=== PATIENT | female | born 1945 | race Caucasian/White ===

== ENCOUNTER → 2018-02-24 09:47 | Outpatient (CLI) | payer MEDICARE, OTHER, SELFPAY | PROVIDERS: PCP Family Medicine; Visit Provider Family Medicine | DX: M81.0 Age-related osteoporosis without current pathological fracture (principal) | CPT/HCPCS: 77080 ==

== ENCOUNTER 2019-03-31 17:33 | Observation (INO) | payer MEDICARE, OTHER, SELFPAY ==
[2019-03-31 18:20] VITALS: BMI 26.9
[2019-03-31 18:30] VITALS: BP 138/64; PULSE 107; RESP 20; TEMP 37.1; O2SAT 98
[2019-03-31 18:55] LABS: Add Manual Diff / Slide Review NO; Basophils Absolute Auto 100 /uL (0-100); Basophils Percent Auto 0.9 % (0-2); Eosinophils Absolute Auto 100 /uL (0-450); Eosinophils Percent Auto 1.2 % (2-4); Lymphocytes Absolute Auto 1400 /uL (1100-4500); Lymphocytes Percent Auto 20.8 % (25-40); Mean Corpuscular HGB Conc 28.6 % (30-36); Mean Corpuscular Hemoglobin 17.8 PG (26-34); Mean Corpuscular Volume 62.2 fL (80-100); Monocytes Absolute Auto 800 /uL (0-900); Monocytes Percent Auto 11.7 % (3-14); Neutrophils Absolute Auto 4500 /uL (1500-7000); Neutrophils Percent Auto 65.4 % (50-75); Platelet Count 628 X10^3/uL (150-400); Red Blood Cell Count 2.45 X10^6/uL (4.0-5.2); Red Cell Distribution Width 17.7 % (11.6-14.8); White Blood Cell Count 6.9 X10^3/uL (4.5-11.0)
[2019-03-31 19:00] LABS: Hematocrit 15.2 % (36-46); Hemoglobin 4.3 g/dL (12.0-16.0)
[2019-03-31 19:03] LABS: Prothrombin Time 11.7 SECONDS (10.1-12.7)
[2019-03-31 19:04] LABS: Reticulocyte Count, Percent 2.8 % (1.06-2.63)
[2019-03-31 19:07] LABS: Alanine Aminotransferase 29 IU/L (9-52); Albumin 3.8 g/dL (3.5-5.0); Albumin Globulin Ratio 1.4 (1.0-2.8); Alkaline Phosphatase 77 U/L (38-126); Aspartate Aminotransferase 19 IU/L (14-36); BUN Creatinine Ratio 30.9 (6-22); Bilirubin Total 0.5 mg/dL (0.2-1.3); Blood Urea Nitrogen 34 mg/dL (7-17); Carbon Dioxide 22 mmol/L (22-32); Chloride 104 mmol/L (98-107); Estimated Glomerular Filt Rate 48.7 mL/min (>60); Globulin 2.7 g/dL (1.7-4.1); Glucose 130 mg/dL (80-110); HEMOLYSIS < 15 (0-50); Potassium 4.3 mmol/L (3.4-5.1); Sodium 136 mmol/L (137-145); Total Protein 6.5 g/dL (6.3-8.2)
[2019-03-31 19:18] LABS: Iron < 10 ug/dL (37-170); Percent Iron Saturation 2 % (15-50); Total Iron Binding Capacity 434 ug/dL (265-497); Transferrin 346 mg/dL (206-381)
[2019-03-31 19:20] LABS: Hypochromasia 2+; Microcytosis 2+; Polychromasia 2+
[2019-03-31 19:21] LABS: Anisocytosis 1+; Poikilocytosis 1+; Spherocytes 1+
[2019-03-31 19:23] LABS: Platelet Estimate Increased on smear
[2019-03-31 19:43] LABS: Ferritin 4.5 ng/mL (11.1-264)
[2019-03-31 19:56] VITALS: BP 125/75; PULSE 107; RESP 16; TEMP 36.7
[2019-03-31] MEDS: ACETAMINOPHEN 325 MG TABLET 650 MG PO (20:09)
[2019-03-31] MEDS: diphenhydrAMINE 25 MG TABLET 50 MG PO (20:09)
--- NOTE | 2019-03-31 20:11 | PC.NURSE ---
Patient admitted to room 209. Alert and oriented with pleasant affect. Denies pain or symptoms of anemia other than some weakness. Oriented to room and call light. Notified Dr. Walden that patient has arrived. Also clarified that patient is to receive 3 units PRBC's. Written orders put into [employer] and placed in chart as ordered. Report given to receiving nurse Wandy.
[2019-03-31 20:13] LABS: Folate 14.3 ng/mL (2.76-20.0); Vitamin B12 329 pg/mL (239-931)
--- NOTE | 2019-03-31 21:18 | PC.NURSE ---
Addendum entered by Wandy Min R.N. 03/31/19 23:50: Confirmed with Dr. Walden that Flexeril is ordered for 10mg, PO, as PRN HS. Having issues acknowledging medication as it was entered as PRN PRN and night pharmacy will not verify. I have tried several times to reject and re-enter order as a verbal with no success. I have relayed to NOC shift this need. Addendum entered by Wandy Min R.N. 03/31/19 23:06: tolerated 1 unit PRBC, infused at 125/hr. SCDs on and pt loves them, ask for longer ones. VSS. Original Note: SIRIA Shift pt AO, pleasant and receptive to care. Started first unit of PRBC with Michelle RN at 1957, VSS before and after 15minutes. pt reporting feeling brighter after an hour and 20 minutes of infusion. pt denies SOB, n/v, or pain but does state she has been feeling more fatigued these past couple weeks than normal. Up SBA, no lightheadedness reported. Tolerating liquids well, has yet to eat for us, as she is only craving broth.
--- NOTE | 2019-03-31 22:41 | P.HP_ITS ---
History of Present Illness Date Patient Seen: 03/31/19 Time Patient Seen: 22:31 Chief complaint: symptomatic anemia, thrombophillia Narrative: 74-year-old female presents as a direct admission from clinic secondary to a critical hemoglobin/hematocrit of 4.8/16.7 in the setting of exhaustion and unrelieved restless leg syndrome. MCV low at 63.5. Platelets elevated at 703. Vital signs in the clinic included a blood pressure of 108/64 and heart rate of 119. She has a history of iron-deficiency anemia and recently stopped her iron supplementation. She is not exactly sure when, probably in the last few months. Coincident with that time, went on a radish-only diet in order to lose weight, successful in losing 10-20 lb. Secondary to unrelenting fatigue, has been eating poorly because she has not had any energy to cook. Unable to walk even short distances secondary to shortness of breath. Feels that her legs are heavy. Her restless legs are ?driving her crazy.? Last CBC in the clinic on 07/11/2019 revealed a hemoglobin of 14.1 and hematocrit of 41.7. Previously hemoglobin 8.5, hematocrit 27.9 on 06/09/2017, MCV 60.1. Iron studies one-week later on 06/16/17 revealed an iron level of 14, iron saturation of 2.7%, and ferritin of 3, consistent with iron deficiency anemia, was treated with iron sulfate at that time. Denies bleeding from any source. No melena or hematochezia. No hematuria. Last colonoscopy approximately 7 years ago, reportedly normal. Pre-transfusion labs in the hospital including CBC, BMP, iron studies, reticulocyte count, vitamin B12, folate, and stool guaiac listed below in objective findings. Patient History Medical History (Updated 03/31/19 @ 23:13 by Enedelia Walden MD) Borderline hypercholesterolemia (Acute) Borderline hypertension (Acute) Bunion of unspecified foot (Acute) Iron deficiency anemia (Acute) Restless leg syndrome (Acute) Seasonal allergies (Acute) Snake bite poisoning (Acute) Surgical History (Updated 03/31/19 @ 23:14 by Enedelia Walden MD) H/O breast biopsy (Acute) History of appendectomy (Acute) History of foot surgery (Acute) History of tonsillectomy and adenoidectomy (Acute) Family History (Updated 03/31/19 @ 23:16 by Enedelia Walden MD) Father Diabetes mellitus Hypertension Stroke Tuberculosis Mother Hypertension Stroke Osteoporosis Sister Scleroderma Social History household members: spouse Smoking Status: Never smoker alcohol intake: current Family & Social History Family History (Updated 03/31/19 @ 23:16 by Enedelia Walden MD) Father Diabetes mellitus Hypertension Stroke Tuberculosis Mother Hypertension Stroke Osteoporosis Sister Scleroderma Family history unavailable: No Social History: household 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 Three children. Safety & Behavioral: Feels Safe in Current Yes Environment Been Physically Hurt or No Threatened By a Person Suicidal Ideation Description None Suicide Plan Description No Plan Tobacco & Substance use: Smoking Status Never smoker alcohol intake current alcohol intake frequency a few times a month Substance Use Type does not use Meds Home Medications Medication Instructions Recorded Confirmed Type atorvastatin 10 mg PO DAILY 03/31/19 03/31/19 History cholecalciferol (vitamin D3) 2,000 unit PO DAILY 03/31/19 03/31/19 History [Vitamin D3] cyclobenzaprine 1 tab PO PRN PRN 03/31/19 03/31/19 History hydrochlorothiazide 12.5 mg PO PRN PRN 03/31/19 03/31/19 History lisinopril 10 mg PO DAILY 03/31/19 03/31/19 History pramipexole 1 tab PO PRN PRN 03/31/19 03/31/19 History Allergies Allergy/AdvReac Type Severity Reaction Status Date / Time No Known Drug Allergies Allergy Verified 03/31/19 19:22 Review of Systems Review of Systems All systems reviewed & are unremarkable except as noted in HPI and below Exam Vital Signs (past 8 hours): - 03/31/19 18:30 03/31/19 19:56 Temperature 98.8 F 98.1 F Pulse Rate 107 H 107 H Respiratory Rate 20 16 Blood Pressure 138/64 125/75 Pulse Oximetry 98 Narrative Exam Narrative: General: Alert and oriented, appearing stated age, no acute distress. HEENT: Head normocephalic/atraumatic. Pupils equal, round, and reactive to light and accommodation. Extraocular muscles intact. Tympanic membranes clear. Nasal mucosa moist, septum midline. Oral mucosa moist, no lesions. Neck soft and supple, no lymphadenopathy. Lungs: Clear to auscultation bilaterally, no wheezes rhonchi or rales. CV: Normal S1 and S2 with regular rate and rhythm, no audible murmurs rubs or gallops. Abdomen: Soft, nontender, nondistended, positive bowel sounds. No organome sathish. Extremities: No clubbing, cyanosis, or edema. Skin: No concerning lesions. Psych: Alert and oriented x3. Objective Labs Result Diagrams: 03/31/19 18:40 03/31/19 18:40 Labs: Laboratory Results - last 24 hr 03/31/19 03/31/19 03/31/19 18:40 18:40 18:40 WBC 6.9 RBC 2.45 L Hgb 4.3 L* Hct 15.2 L* MCV 62.2 L MCH 17.8 L MCHC 28.6 L RDW 17.7 H Plt Count 628 H Neut % (Auto) 65.4 Lymph % (Auto) 20.8 L [place] % (Auto) 11.7 Eos % (Auto) 1.2 L Baso % (Auto) 0.9 Neut # (Auto) 4500 Lymph # (Auto) 1400 [place] # (Auto) 800 Eos # (Auto) 100 Baso # (Auto) 100 Platelet Estimate Increased on smear RBC Morphology See below Polychromasia 2+ H Hypochromasia 2+ H Poikilocytosis 1+ H Anisocytosis 1+ H Microcytosis 2+ H Spherocytes 1+ H Percent Retic 2.8 H PT 11.7 INR 1.0 Sodium Potassium Chloride Carbon Dioxide BUN Creatinine Estimated GFR BUN/Creatinine Ratio Glucose Calcium Iron TIBC % Saturation Transferrin Ferritin Total Bilirubin AST ALT Alkaline Phosphatase Total Protein Albumin Globulin Albumin/Globulin Ratio Vitamin B12 Folate Blood Type Antibody Screen Crossmatch 03/31/19 03/31/19 03/31/19 18:40 18:40 18:40 WBC RBC Hgb Hct MCV MCH MCHC RDW Plt Count Neut % (Auto) Lymph % (Auto) [place] % (Auto) Eos % (Auto) Baso % (Auto) Neut # (Auto) Lymph # (Auto) [place] # (Auto) Eos # (Auto) Baso # (Auto) Platelet Estimate RBC Morphology Polychromasia Hypochromasia Poikilocytosis Anisocytosis Microcytosis Spherocytes Percent Retic PT INR Sodium 136 L Potassium 4.3 Chloride 104 Carbon Dioxide 22 BUN 34 H Creatinine 1.10 H Estimated GFR 48.7 L BUN/Creatinine Ratio 30.9 H Glucose 130 H Calcium 9.0 Iron < 10 L TIBC 434 % Saturation 2 L Transferrin 346 Ferritin 4.5 L Total Bilirubin 0.5 AST 19 ALT 29 Alkaline Phosphatase 77 Total Protein 6.5 Albumin 3.8 Globulin 2.7 Albumin/Globulin Ratio 1.4 Vitamin B12 329 Folate 14.3 Blood Type O Negative Antibody Screen Negative Crossmatch See Detail Assessment & Plan Assessment & Plan narrative: 1. Iron deficiency anemia, symptomatic. Will admit for blood transfusion, at least 3 units to start, CBC status post transfusion. Discussed need for restarting oral virus versus IV iron. Will d iscuss again tomorrow status post blood transfusion. Celiac panel and EGD/colonoscopy with H pylori testing to complete workup. 2. Restless leg syndrome, likely exacerbated by iron deficiency anemia. Will continue home pramipexole at increased dose of 0.5 mg p.o. q.h.s.. May continue cyclobenzaprine 10 mg p.o. q.h.s. as needed. 3. Hypertension, essential. Continue lisinopril 10 mg p.o. q.h.s.. Holding hydrochlorothiazide during admission. 4. Elevated BUN and creatinine in setting of low GFR, acute versus chronic kidney injury uncertain, will trend BMP in the am. 5. Thrombophillia, likely acute phase reactant and related to anemia, will trend CBC. 6. Hyperlipidemia, controlled with atorvastatin, holding during inpatient stay. 7. VTE prophylaxis, SCDs. 8. Code: Full Quality VTE Deep Vein Thrombosis/Pulmonary Embolism Present on Admission: No
[2019-03-31 23:00] VITALS: BP 132/85; PULSE 107; RESP 16; TEMP 36.9
[2019-03-31 23:13] VITALS: BP 132/85; PULSE 107; RESP 18; TEMP 36.9
[2019-03-31 23:28] VITALS: BP 138/79; PULSE 106; RESP 18; TEMP 37.3
--- NOTE | 2019-03-31 23:49 | PM.HP.1 ---
History of Present Illness Chief complaint: symptomatic anemia, thrombophillia Narrative: 74-year-old female presents as a direct admission from clinic secondary to a critical hemoglobin/hematocrit of 4.8/16.7 in the setting of exhaustion and unrelieved restless leg syndrome. MCV low at 63.5. Platelets elevated at 703. Vital signs in the clinic included a blood pressure of 108/64 and heart rate of 119. She has a history of iron-deficiency anemia and recently stopped her iron supplementation. She is not exactly sure when, probably in the last few months. Coincident with that time, went on a radish-only diet in order to lose weight, successful in losing 10-20 lb. Secondary to unrelenting fatigue, has been eating poorly because she has not had any energy to cook. Unable to walk even short distances secondary to shortness of breath. Feels that her legs are heavy. Her restless legs are ?driving her crazy.? Last CBC in the clinic on 07/11/2019 revealed a hemoglobin of 14.1 and hematocrit of 41.7. Previously hemoglobin 8.5, hematocrit 27.9 on 06/09/2017, MCV 60.1. Iron studies one-week later on 06/16/17 revealed an iron level of 14, iron saturation of 2.7%, and ferritin of 3, consistent with iron deficiency anemia, was treated with iron sulfate at that time. Denies bleeding from any source. No melena or hematochezia. No hematuria. Last colonoscopy approximately 7 years ago, reportedly normal. Pre-transfusion labs in the hospital including CBC, BMP, iron studies, reticulocyte count, vitamin B12, folate, and stool guaiac listed below in objective findings. Patient History Medical History (Updated 03/31/19 @ 23:13 by Enedelia Walden MD) Borderline hypercholesterolemia (Acute) Borderline hypertension (Acute) Bunion of unspecified foot (Acute) Iron deficiency anemia (Acute) Restless leg syndrome (Acute) Seasonal allergies (Acute) Snake bite poisoning (Acute) Surgical History (Updated 03/31/19 @ 23:14 by Enedelia Walden MD) H/O breast biopsy (Acute) History of appendectomy (Acute) History of foot surgery (Acute) History of tonsillectomy and adenoidectomy (Acute) Family History (Updated 03/31/19 @ 23:16 by Enedelia Walden MD) Father Diabetes mellitus Hypertension Stroke Tuberculosis Mother Hypertension Stroke Osteoporosis Sister Scleroderma Social History household members: spouse Smoking Status: Never smoker alcohol intake: current Family & Social History Family History (Updated 03/31/19 @ 23:16 by Enedelia Walden MD) Father Diabetes mellitus Hypertension Stroke Tuberculosis Mother Hypertension Stroke Osteoporosis Sister Scleroderma Social History: Family history unavailable No household members spouse Safety & Behavioral: Feels Safe in Current Yes Environment Been Physically Hurt or No Threatened By a Person Suicidal Ideation Description None Suicide Plan Description No Plan Tobacco & Substance use: Smoking Status Never smoker alcohol intake current alcohol intake frequency a few times a month Substance Use Type does not use Meds Home Medications Medication Instructions Recorded Confirmed Type atorvastatin 10 mg PO DAILY 03/31/19 03/31/19 History cholecalciferol (vitamin D3) 2,000 unit PO DAILY 03/31/19 03/31/19 History [Vitamin D3] cyclobenzaprine 1 tab PO PRN PRN 03/31/19 03/31/19 History hydrochlorothiazide 12.5 mg PO PRN PRN 03/31/19 03/31/19 History lisinopril 10 mg PO DAILY 03/31/19 03/31/19 History pramipexole 1 tab PO PRN PRN 03/31/19 03/31/19 History Allergies Allergy/AdvReac Type Severity Reaction Status Date / Time No Known Drug Allergies Allergy Verified 03/31/19 19:22 Exam Vital Signs (past 8 hours): - 03/31/19 18:30 03/31/19 19:56 03/31/19 23:00 Temperature 98.8 F 98.1 F 98.4 F Pulse Rate 107 H 107 H 107 H Respiratory Rate 20 16 16 Blood Pressure 138/64 125/75 132/85 Pulse Oximetry 98 03/31/19 23:13 03/31/19 23:28 Temperature 98.4 F 99.1 F Pulse Rate 107 H 106 H Respiratory Rate 18 18 Blood Pressure 132/85 138/79 Pulse Oximetry Objective Labs Result Diagrams: 03/31/19 18:40 03/31/19 18:40 Labs: Laboratory Results - last 24 hr 03/31/19 03/31/19 03/31/19 18:40 18:40 18:40 WBC 6.9 RBC 2.45 L Hgb 4.3 L* Hct 15.2 L* MCV 62.2 L MCH 17.8 L MCHC 28.6 L RDW 17.7 H Plt Count 628 H Neut % (Auto) 65.4 Lymph % (Auto) 20.8 L [place] % (Auto) 11.7 Eos % (Auto) 1.2 L Baso % (Auto) 0.9 Neut # (Auto) 4500 Lymph # (Auto) 1400 [place] # (Auto) 800 Eos # (Auto) 100 Baso # (Auto) 100 Platelet Estimate Increased on smear RBC Morphology See below Polychromasia 2+ H Hypochromasia 2+ H Poikilocytosis 1+ H Anisocytosis 1+ H Microcytosis 2+ H Spherocytes 1+ H Percent Retic 2.8 H PT 11.7 INR 1.0 Sodium Potassium Chloride Carbon Dioxide BUN Creatinine Estimated GFR BUN/Creatinine Ratio Glucose Calcium Iron TIBC % Saturation Transferrin Ferritin Total Bilirubin AST ALT Alkaline Phosphatase Total Protein Albumin Globulin Albumin/Globulin Ratio Vitamin B12 Folate Blood Type Antibody Screen Crossmatch 03/31/19 03/31/19 03/31/19 18:40 18:40 18:40 WBC RBC Hgb Hct MCV MCH MCHC RDW Plt Count Neut % (Auto) Lymph % (Auto) [place] % (Auto) Eos % (Auto) Baso % (Auto) Neut # (Auto) Lymph # (Auto) [place] # (Auto) Eos # (Auto) Baso # (Auto) Platelet Estimate RBC Morphology Polychromasia Hypochromasia Poikilocytosis Anisocytosis Microcytosis Spherocytes Percent Retic PT INR Sodium 136 L Potassium 4.3 Chloride 104 Carbon Dioxide 22 BUN 34 H Creatinine 1.10 H Estimated GFR 48.7 L BUN/Creatinine Ratio 30.9 H Glucose 130 H Calcium 9.0 Iron < 10 L TIBC 434 % Saturation 2 L Transferrin 346 Ferritin 4.5 L Total Bilirubin 0.5 AST 19 ALT 29 Alkaline Phosphatase 77 Total Protein 6.5 Albumin 3.8 Globulin 2.7 Albumin/Globulin Ratio 1.4 Vitamin B12 329 Folate 14.3 Blood Type O Negative Antibody Screen Negative Crossmatch See Detail Quality VTE Deep Vein Thrombosis/Pulmonary Embolism Present on Admission: No
[2019-04-01] VITALS (11 sets, daily range): BP systolic 120–146; BP diastolic 63–98; PULSE 86–104; RESP 17–18; TEMP 36.7–37; O2SAT 96–99
[2019-04-01] MEDS: PRAMIPEXOLE 0.125 MG TABLET 0.375 MG PO (00:26)
[2019-04-01] MEDS: CYCLOBENZAPRINE 10 MG TABLET PO (00:29)
[2019-04-01] MEDS: FUROSEMIDE 40 MG/4 ML VIAL IV (02:59)
[2019-04-01] MEDS: DEXTROSE 5%-0.45% NS 1,000 ML 100 ML IV (06:51)
--- NOTE | 2019-04-01 07:02 | PC.NURSE ---
Lung sounds clear, VSS. Pt had blood administration through the night, 3rd Unit of PRBC's given, with no transfusion reaction. Pt still needs AM labs drawn at 0745. Pt switched over to D5 1/2NS at 100ml and hour at 0700. Pt is independent in room. Did not use SCD's this night, because of frequent trips to the bathroom since diuretic was given. Pt had no BM's this night so there was no stools to Guiac. all stools to be guiaced.
[2019-04-01 08:56] LABS: BUN Creatinine Ratio 25.6 (6-22); Blood Urea Nitrogen 23 mg/dL (7-17); Calcium 8.9 mg/dL (8.4-10.2); Carbon Dioxide 25 mmol/L (22-32); Chloride 105 mmol/L (98-107); Estimated Glomerular Filt Rate > 60.0 mL/min (>60); Glucose 124 mg/dL (80-110); HEMOLYSIS < 15 (0-50); Potassium 4.2 mmol/L (3.4-5.1); Sodium 138 mmol/L (137-145)
[2019-04-01 09:01] LABS: Add Manual Diff / Slide Review NO; Basophils Absolute Auto 100 /uL (0-100); Basophils Percent Auto 1.8 % (0-2); Eosinophils Absolute Auto 100 /uL (0-450); Eosinophils Percent Auto 1.5 % (2-4); Hematocrit 26.1 % (36-46); Hemoglobin 8.7 g/dL (12.0-16.0); Lymphocytes Absolute Auto 900 /uL (1100-4500); Lymphocytes Percent Auto 13.5 % (25-40); Mean Corpuscular HGB Conc 33.2 % (30-36); Mean Corpuscular Volume 69.3 fL (80-100); Monocytes Absolute Auto 700 /uL (0-900); Monocytes Percent Auto 10.2 % (3-14); Neutrophils Absolute Auto 5000 /uL (1500-7000); Platelet Count 502 X10^3/uL (150-400); Red Blood Cell Count 3.77 X10^6/uL (4.0-5.2); Red Cell Distribution Width 24.2 % (11.6-14.8); White Blood Cell Count 6.9 X10^3/uL (4.5-11.0)
[2019-04-01] MEDS: ACETAMINOPHEN 325 MG TABLET 650 MG PO (09:11)
[2019-04-01] MEDS: LISINOPRIL 10 MG TABLET PO (09:11)
[2019-04-01 10:25] LABS: Anisocytosis 2+; Basophilic Stippling 1+; Hypochromasia 2+; Microcytosis 1+; Poikilocytosis 1+; Polychromasia 1+
--- NOTE | 2019-04-01 11:25 | PM.DS.1 ---
History of Present Illness Chief complaint: symptomatic anemia, thrombophillia Narrative: 74-year-old female presents as a direct admission from clinic secondary to a critical hemoglobin/hematocrit of 4.8/16.7 in the setting of exhaustion and unrelieved restless leg syndrome. MCV low at 63.5. Platelets elevated at 703. Vital signs in the clinic included a blood pressure of 108/64 and heart rate of 119. She has a history of iron-deficiency anemia and recently stopped her iron supplementation. She is not exactly sure when, probably in the last few months. Coincident with that time, went on a radish-only diet in order to lose weight, successful in losing 10-20 lb. Secondary to unrelenting fatigue, has been eating poorly because she has not had any energy to cook. Unable to walk even short distances secondary to shortness of breath. Feels that her legs are heavy. Her restless legs are ?driving her crazy.? Last CBC in the clinic on 07/11/2019 revealed a hemoglobin of 14.1 and hematocrit of 41.7. Previously hemoglobin 8.5, hematocrit 27.9 on 06/09/2017, MCV 60.1. Iron studies one-week later on 06/16/17 revealed an iron level of 14, iron saturation of 2.7%, and ferritin of 3, consistent with iron deficiency anemia, was treated with iron sulfate at that time. Denies bleeding from any source. No melena or hematochezia. No hematuria. Last colonoscopy approximately 7 years ago, reportedly normal. Pre-transfusion labs in the hospital including CBC, BMP, iron studies, reticulocyte count, vitamin B12, folate, and stool guaiac listed below in objective findings. Discharge Providers Date of admission: 03/31/19 17:33 Discharge Date: 04/01/19 Primary care physician: Enedelia Walden MD Discharge provider: Enedelia Walden MD Summary Discharge Diagnosis: 1. Iron deficiency anemia, symptomatic 2. Acute kidney injury, improving 3. Thrombophilia, improving 4. Impaired fasting glucose 5. Restless legs syndrome 6. Hypertension, essential 7. Hyperlipidemia Hospital Course: Unremarkable, patient received 3 units of packed red blood cells with no side effects, hemoglobin doris from 4.3 to 8.7. On day of discharge, she is afebrile with stable vital signs throughout. Able to ambulate up to the bathroom, denies shortness of breath or chest pain. Admission heart rate 107, now 86. Patient did show kidney injury upon admission, which appears to be acute as her creatinine and BUN fell from 1.10 to 0.90 and 34 to 23, respectively. Admission platelets 628, discharge 502. She will be discharged on oral iron supplements with close follow-up in 1 week. Stool guaiac is pending secondary to lack of bowel movement during hospital stay. Outpatient EGD/colonoscopy in the next few weeks. Time spent on discharge and coordination of post hospital care: 30 minutes. Exam Vital Signs (past 8 hours): - 04/01/19 03:44 04/01/19 03:49 04/01/19 04:05 Temperature 98.3 F 98.3 F 98.4 F Pulse Rate 97 H 97 H 94 H Respiratory Rate 18 18 18 Blood Pressure 129/75 129/75 120/66 Pulse Oximetry 04/01/19 04:18 04/01/19 06:20 04/01/19 08:00 Temperature 98.4 F 98.1 F 98.2 F Pulse Rate 94 H 86 98 H Respiratory Rate 18 18 18 Blood Pressure 120/66 123/63 145/98 H Pulse Oximetry 99 97 04/01/19 09:05 Temperature Pulse Rate Respiratory Rate Blood Pressure Pulse Oximetry 96 Oxygen Delivery Method Room Air Oxygen Flow Rate 0 Narrative Exam Narrative: General: Alert and oriented, appearing stated age, no acute distress. HEENT: Head normocephalic/atraumatic. Pupils equal, round, and reactive to light and accommodation. Extraocular muscles intact. Tympanic membranes clear. Nasal mucosa moist, septum midline. Oral mucosa moist, no lesions. Neck soft and supple, no lymphadenopathy. Lungs: Clear to auscultation bilaterally, no wheezes rhonchi or rales. CV: Normal S1 and S2 with regular rate and rhythm, no audible murmurs rubs or gallops. Abdomen: Soft, nontender, nondistended, positive bowel sounds. No organomegaly. Extremities: No clubbing, cyanosis, or edema. Skin: No concerning lesions. Psych: Alert and oriented x3. Objective Labs Result Diagrams: 04/01/19 08:35 04/01/19 08:35 Labs: Laboratory Results - last 24 hr 03/31/19 03/31/19 03/31/19 18:40 18:40 18:40 WBC 6.9 RBC 2.45 L Hgb 4.3 L* Hct 15.2 L* MCV 62.2 L MCH 17.8 L MCHC 28.6 L RDW 17.7 H Plt Count 628 H Neut % (Auto) 65.4 Lymph % (Auto) 20.8 L [place] % (Auto) 11.7 Eos % (Auto) 1.2 L Baso % (Auto) 0.9 Neut # (Auto) 4500 Lymph # (Auto) 1400 [place] # (Auto) 800 Eos # (Auto) 100 Baso # (Auto) 100 Platelet Estimate Increased on smear RBC Morphology See below Polychromasia 2+ H Hypochromasia 2+ H Poikilocytosis 1+ H Basophilic Stippling Anisocytosis 1+ H Microcytosis 2+ H Spherocytes 1+ H Percent Retic 2.8 H PT 11.7 INR 1.0 Sodium Potassium Chloride Carbon Dioxide BUN Creatinine Estimated GFR BUN/Creatinine Ratio Glucose Calcium Iron TIBC % Saturation Transferrin Ferritin Total Bilirubin AST ALT Alkaline Phosphatase Total Protein Albumin Globulin Albumin/Globulin Ratio Vitamin B12 Folate Blood Type Antibody Screen Crossmatch 03/31/19 03/31/19 03/31/19 18:40 18:40 18:40 WBC RBC Hgb Hct MCV MCH MCHC RDW Plt Count Neut % (Auto) Lymph % (Auto) [place] % (Auto) Eos % (Auto) Baso % (Auto) Neut # (Auto) Lymph # (Auto) [place] # (Auto) Eos # (Auto) Baso # (Auto) Platelet Estimate RBC Morphology Polychromasia Hypochromasia Poikilocytosis Basophilic Stippling Anisocytosis Microcytosis Spherocytes Percent Retic PT INR Sodium 136 L Potassium 4.3 Chloride 104 Carbon Dioxide 22 BUN 34 H Creatinine 1.10 H Estimated GFR 48.7 L BUN/Creatinine Ratio 30.9 H Glucose 130 H Calcium 9.0 Iron < 10 L TIBC 434 % Saturation 2 L Transferrin 346 Ferritin 4.5 L Total Bilirubin 0.5 AST 19 ALT 29 Alkaline Phosphatase 77 Total Protein 6.5 Albumin 3.8 Globulin 2.7 Albumin/Globulin Ratio 1.4 Vitamin B12 329 Folate 14.3 Blood Type O Negative Antibody Screen Negative Crossmatch See Detail 04/01/19 04/01/19 08:35 08:35 WBC 6.9 RBC 3.77 L Hgb 8.7 L Hct 26.1 L MCV 69.3 L D MCH 23.0 L MCHC 33.2 D RDW 24.2 H Plt Count 502 H Neut % (Auto) 73.0 Lymph % (Auto) 13.5 L [place] % (Auto) 10.2 Eos % (Auto) 1.5 L Baso % (Auto) 1.8 Neut # (Auto) 5000 Lymph # (Auto) 900 L [place] # (Auto) 700 Eos # (Auto) 100 Baso # (Auto) 100 Platelet Estimate RBC Morphology See below Polychromasia 1+ H Hypochromasia 2+ H Poikilocytosis 1+ H Basophilic Stippling 1+ H Anisocytosis 2+ H Microcytosis 1+ H Spherocytes Percent Retic PT INR Sodium 138 Potassium 4.2 Chloride 105 Carbon Dioxide 25 BUN 23 H Creatinine 0.90 Estimated GFR > 60.0 BUN/Creatinine Ratio 25.6 H Glucose 124 H Calcium 8.9 Iron TIBC % Saturation Transferrin Ferritin Total Bilirubin AST ALT Alkaline Phosphatase Total Protein Albumin Globulin Albumin/Globulin Ratio Vitamin B12 Folate Blood Type Antibody Screen Crossmatch Discharge Plan Discharge Plan Patient Disposition: Home Discharge Med Rec/Prescriptions Prescriptions: New pramipexole 0.125 mg Tablet 0.375 mg PO BEDTIME Qty: 270 RF: 3 ferrous sulfate 325 mg (65 mg iron) tablet 325 mg PO BID Qty: 180 RF: 3 Continued atorvastatin 10 mg tablet 10 mg PO DAILY RF: 0 cyclobenzaprine 10 mg tablet 1 tab PO PRN PRN (Reason: Cramps) RF: 0 lisinopril 10 mg tablet 10 mg PO DAILY RF: 0 cholecalciferol (vitamin D3) [Vitamin D3] 1,000 unit Capsule 2,000 unit PO DAILY RF: 0 hydrochlorothiazide 12.5 mg tablet 12.5 mg PO PRN PRN (Reason: Edema) RF: 0 Changed pramipexole 0.125 mg tablet 1 tab PO QAM Qty: 0 RF: 0 Follow up/Referrals: Enedelia Walden MD [Non-Staff] - 04/05/19 (Call to make appt, GI pre-op on 04/05 at [facility], Enedelia Walden MD) Provider Discharge Instructions Diet: Regular Activity: as tolerated Skin/Wound/Dressing Care Report to your healthcare provider any signs of infection, such as:: chills, fever Visit Report/Discharge Packet Instructions: Good Food Sources of Iron, Colonoscopy, Anemia, DI for Blood Transfusion, How to Prevent Falls Visit Report Forms: Stroke Signs & Symptoms Discharge Data Primary Care Provider: Karson Prasad Attending Provider: Snehal Garcia Admit Date/Time: 03/31/19 17:33 Quality VTE Deep Vein Thrombosis/Pulmonary Embolism Present on Admission: No
--- NOTE | 2019-04-01 11:44 | CM.DANOTE ---
Patient is a 74 year old female who was admitted on 03/31/19 for Anemia, leukopenia, Thrombophilia. Pt has [facility] and [facility] for insurance and pt's PCP was Dr. Prasad who is retired and therefore pt with Dr. Enedelia Walden at their clinic. EMR was reviewed. Per Dr. Walden, pt significantly improved after 3 units of blood and is stable for d/c home today with plan for outpt scope in 3 weeks. SW met bedside with pt and explained role and pt confirms that she lives at home in [place] with her and is active and Independent at baseline with ADL's. Pt drives and is involved in the community and has local adult children. Pt denies any hx of HH or SNF and preference is to d/c home via spouse today and does not anticipate any SW needs. Pt states that she called her and he will be bedside around 1330 and available to provide transport and assist if needed. Pt states she feels so much better after getting transfusion. Plan: Patient to d/c home today via spouse POV and no SW needs at this time. NATASHA Chopra Discharge Planning/Care Management Advanced directive, confirm from FAMILY Start: 03/31/19 19:04 Freq: Q24H Status: Active Protocol: Document 03/31/19 19:04 CMG (Rec: 03/31/19 19:15 CMG [id number]) Advance Directive, confirm on record Time 19:15 Person contacted patient Copy received No CM Discharge Assessment Start: 04/01/19 11:41 Freq: Status: Active Protocol: Document 04/01/19 11:41 BF (Rec: 04/01/19 11:44 BF [id number]) Discharge Planning Assessment Assigned Child Psychologist NATASHA Anthony DPOA/Assigned Designee Name spouse Guru Advance Directives? Yes History Provided By Patient Medical Record Has Patient been admitted in last 30 No days? Prior Living Arrangements House Household Members spouse Type of transporation used prior to Drives own vehicle admit Independent with ADL's Yes Is patient alert and oriented? Yes Caregiver for Another No Comment Home when stable Barriers to Discharge No Discharge Plan Home Transportation Arrangement Spouse will be bedside around 1330 today to provide transport Referrals Initiated None needed Whiteboard Updated in Patient Room with Yes name and ext. # of Child Psychologist Review Status In Process Please Provide Date Initial DC 04/01/19 Assessment Was Performed Next Review Type Continued Stay Review
--- NOTE | 2019-04-01 13:48 | PC.NURSE ---
Addendum entered by Nena Nayak R.N. 04/01/19 14:01: pt left unit at 1400 via wheelchair with all belongings, , and [employer]CHNICIAN escort. Pt left unit in no distress. Original Note: Day Shift- Pt's only complaint this AM is of an anterior headache 3/10 relieved with PRN Tylenol at 0912. Denies dizziness, light-headedness, shortness of breath with rest or ambulation, states feeling generalized weakness, not at baseline. IVF infusing well throughout AM, stopped at 1120. Dr. Walden into see pt for discharge order. Discharge summary packet reviewed with pt around 1320. All questions answered, pt states is ready to go home. Pt's present to drive pt home.
== END 2019-04-01 14:00 | disposition home or self-care (01) ==
PROVIDERS: Family Medicine; Admitting Provider Student in an Organized Health Care Education/Training Program; PCP Family Medicine; Visit Provider Student in an Organized Health Care Education/Training Program
DX: N17.9 Acute kidney failure, unspecified (principal); D68.59 Other primary thrombophilia; G25.81 Restless legs syndrome; I10 Essential (primary) hypertension; E78.5 Hyperlipidemia, unspecified
CPT/HCPCS: 36415; 36430; 80048; 80053; 82607; 82728; 82746; 83540; 83550; 85025; 85045; 85610; 86850; 86900; 86901; 96365; 96374; 96375; G0378; P9016; G0379; J1940

== ENCOUNTER 2019-05-19 11:59 | Day surgery (SDC) | payer MEDICARE, OTHER, SELFPAY ==
--- NOTE | 2019-05-19 | PATH_ITS ---
[facility] Accession Number: [id number] . 01 Material submitted: . PART A: duodenum - BIOPSY THIRD PORTION DUODENUM PART B: gastrointestinal site - BIOPSY PYLORUS PART C: gastrointestinal site - BIOPSY FUNDUS STOMACH PART D: gastrointestinal site - BIOPSY BODY OF STOMACH PART E: colon - POLYP ASCENDING COLON . 02 Diagnosis: A. Duodenum, Third Portion, Biopsy: Duodenal mucosa with no diagnostic abnormality. Negative for active inflammation, features of sprue, dysplasia, and malignancy. . B. Stomach, Pylorus, Biopsy: Antral mucosa with mild chronic gastritis. Negative for Helicobacter by immunohistochemistry. Negative for intestinal metaplasia by alcian blue stain. Negative for dysplasia and malignancy. . C-D. Stomach, Fundus, Body, Biopsies: Body-type mucosa with mild chronic gastritis. Negative for Helicobacter by immunohistochemistry. Negative for intestinal metaplasia by alcian blue stains. Negative for dysplasia and malignancy. . E. Ascending Colon, Polyp, Biopsy: Sessile serrated adenoma. [facility]/05/23/2019 . 02 Electronically signed: . Brit Ramires MD, Pathologist NPI- [id number] . 01 Gross description: . (A) Received in formalin, labeled biopsy third portion duodenum, are two fragments of santamaria tissue (each approximately 0.2 x 0.2 x 0.1 cm). Entirely submitted in cassette A1. (B) Received in formalin, labeled biopsy pylorus, is a fragment of schrader-white tissue (0.3 x 0.2 by less than 0.1 cm).Entirely submitted in cassette B1. (C) Received in formalin, labeled biopsy fundus stomach, are two fragments of schrader-white tissue (0.4 x 0.1 x 0.1 cm and 0.2 x 0.1 x 0.1 cm). Entirely submitted in cassette C1. (D) Received in formalin, labeled biopsy body stomach, are two fragments of schrader-santamaria tissue (0.2 x 0.1 by less than 0.1 cm and 0.3 x 0.2 x 0.1 cm). Entirely submitted in cassette D1. (E) Received in formalin, labeled polyp ascending colon, are multiple fragments of blue-green stained tissue (1.3 x 0.8 x 0.1 cm in aggregate. Filtered and entirely submitted in cassette E1. ([id number]) /MRV . 02 Microscopic: . B-D. Immunohistochemical stains were performed on blocks B-D in order to evaluate for Helicobacter organisms and are negative in all three blocks. Alcian blue stains were performed on blocks B-D in order to evaluate for intestinal metaplasia and are negative in all three blocks. The control stains showed appropriate reactivity. . * This test was developed and its performance characteristics determined by [facility]. It has not been cleared or approved by the U.S. Food and Drug Administration. The FDA has determined that such clearance or approval is not necessary. This test is used for clinical purposes. It should not be regarded as investigational or for research. . 02 Pathologist provided ICD-10: D12.2 . 02 CPT . 990576, 735545, 373135, 382705, 451466, I53205, N28318 Performed at: 01 [facility] [address] [id number] MD Osorio Torres MD Phone: [phone] Performed at: 02 [facility] [address] [place] [id number] MD Brit Ramires MD Phone: [phone]
[2019-05-19 12:35] VITALS: BP 169/104; PULSE 103; RESP 14; TEMP 36.8; O2SAT 98; BMI 25.9
[2019-05-19] MEDS: SODIUM CHLORIDE 0.9% 1,000 ML 200 ML IV (12:49)
--- NOTE | 2019-05-19 12:51 | PM.OP.ENDO ---
Operative Date/Time/Diagnoses Date of procedure: 05/19/19 Time of procedure: 12:51 Pre-op diagnosis: 1. Screening for colon cancer 2. Anemia Procedure & Clinicians Study performed: 1. EGD Same procedure as scheduled: Yes Indications: 1. Anemia Surgeon: Enedelia Walden Procedure Notes SCOAP/Timeout: 13:01 Procedure in detail: ENDOSCOPIST: Enedelia Walden MD PROCEDURE: EGD with biopsy INDICATIONS: 1. Anemia MEDICATION: Incremental doses of Versed and fentanyl until an appropriate level of sedation was achieved. ASA Ratin DURATION OF PROCEDURE: 11 minutes. COMPLICATIONS: None. LIMITATIONS: None EXTENT OF PROCEDURE: Third portion of the Duodenum. PROCEDURE: The high-definition gastroduodenoscope was introduced into the posterior oropharynx under direct vision after Hurricaine spray, noted IV sedation, and proper informed consent. The esophagus was identified and intubated under direct visualization. The scope was quickly passed through the esophagus and into the fundus of the stomach. A clear fundal pool was aspirated. The scope was then advanced to the antrum and the pylorus was identified. The scope was passed through the pylorus into the second and third portions of the duodenum. No abnormalities were noted in the duodenum, duodenal bulb or pyloric channel. Random biopsies x2. The antrum had superficial hyperemesis, random biopsies taken x2. J maneuver was produced. No abnormalities were noted of the proximal body, fundus or cardia. A moderate-sized hiatal hernia was noted. Scope was broken out of the J maneuver and the remainder of the stomach was carefully inspected upon withdrawal and body had some superficial hyperemesis, random biopsies taken x2. The stomach was carefully deflated of all air on withdrawal. The distal esophagus was carefully inspected and no abnormalities were seen. The remainder of the esophagus was normal upon withdrawal. The larynx and vocal cords appeared to be unremarkable. IMPRESSION: 1. Superficial hyper emesis, antrum and body 2. Moderate sized hiatal hernia PLAN: 1. Follow up in clinic status post pathology results The possibility of missed lesion including a malignancy was discussed prior with the patient. Potential alarm symptoms have been discussed and should be reported by the patient immediately. Scope withdrawal time: 10 minutes Sedation minutes: 10 Findings: gastritis Specimen(s): other Complications: none Impression: Superficial hyperemesis, hiatal hernia Recommendations: Will call with biopsy results Plan for aftercare: Follow-up in 2 weeks Follow up: weeks (2) Disposition: PACU
--- NOTE | 2019-05-19 12:53 | PM.OP.ENDO ---
Operative Date/Time/Diagnoses Date of procedure: 05/19/19 Time of procedure: 12:54 Pre-op diagnosis: 1. Anemia 2. Screening for colon cancer Procedure & Clinicians Study performed: 1. Colonoscopy Same procedure as scheduled: Yes Indications: 1. Anemia 2. Screening for colon cancer Surgeon: Enedelia Walden Procedure Notes SCOAP/Timeout: 13:16 Procedure in detail: ENDOSCOPIST: Enedelia Walden MD PROCEDURE: Colonoscopy with biopsy INDICATIONS: 1. Anemia 2. Screening for colon cancer MEDICATION: Levsin 0.125 mg sublingual, incremental doses of Versed and fentanyl until appropriate level sedation achieved. ASA CLASS: 2 CECAL WITHDRAWAL TIME: 32 minutes COMPLICATIONS: None. EXTENT OF PROCEDURE: Cecum. QUALITY OF PREP: Good with portions of liquid stool. PROCEDURE: Prior to insertion of the colonoscope, a digital rectal examination was accomplished with circumferential palpation of the distal rectal mucosa without significant findings being noted. The high-definition colonoscope was passed into the rectum in the usual fashion and advanced over to the cecum without difficulty. The ileocecal valve, appendiceal stoma, and medial wall all could be inspected and no abnormalities were seen. ASCENDING COLON: As the colonoscope was withdrawn, care was taken to expose and inspect the haustral folds and an 8 mm sessile polyp was seen, lifted with methylene blue and removed with cold snare, hemoclip placed with excellent hemostasis. HEPATIC FLEXURE: Mild diverticulosis, otherwise, no polyps or other abnormalities. TRANSVERSE COLON: Mild diverticulosis, otherwise, no polyps or other abnormalities. DESCENDING COLON: Severe diverticulosis, otherwise, no polyps or other abnormalities. SIGMOID COLON: Severe diverticulosis, otherwise, no polyps or other abnormalities. RECTUM: Normal. J maneuver was produced. There was no significant perianal disease. The J maneuver was broken. The remainder of the rectum was inspected and there was no external hemorrhoid disease. The scope was withdrawn. IMPRESSION: 1. Ascending polyp x1, 8 mm, left with methylene blue and removed with cold snare 2. Diverticulosis, mild right-sided, severe left-sided PLAN: 1. Follow up in clinic status post pathology results. The possibility of a missed lesion including a malignancy has been discussed with the patient previously. Potential alarm symptoms have been discussed and should be reported immediately. Scope withdrawal time: 32 Sedation minutes: 39 Findings: polyp Specimen(s): other Complications: none Impression: 1. Ascending polyp x1, 8 mm 2. Diverticulosis, severe, left-sided Recommendations: Will call with biopsy results Follow up: weeks (2) Disposition: PACU
[2019-05-19] MEDS: fentaNYL 250 MCG/5 ML INJ IV (13:29)
[2019-05-19] MEDS: MIDAZOLAM 5 MG/5 ML VIAL IV (13:32)
[2019-05-19] MEDS: METHYLENE BLUE 50 MG/10 ML VIAL INJ (13:42)
[2019-05-19 13:59] VITALS: BP 143/93; PULSE 97; RESP 15; TEMP 36.6; O2SAT 97
[2019-05-19 14:03] VITALS: BP 129/82; PULSE 100; RESP 12; O2SAT 98
[2019-05-19] MEDS: LIDOCAINE 4% SOLN 50 ML 20 ML TOP (14:03)
[2019-05-19 14:08] VITALS: BP 150/84; PULSE 100; RESP 19; O2SAT 97
[2019-05-19 14:13] VITALS: BP 146/92; PULSE 98; RESP 15; O2SAT 97
[2019-05-19 14:16] VITALS: BP 148/94; PULSE 96; RESP 16; TEMP 37.1; O2SAT 96
--- NOTE | 2019-06-02 16:33 | P.HP_ITS ---
History of Present Illness History of Present Illness Date Patient Seen: 05/19/19 Time Patient Seen: 12:45 Chief complaint: [id number] Narrative: 74-year-old female comes in today for hospital follow-up of symptomatic iron-deficiency anemia need for EGD/colonoscopy. Transfused 3 units of blood on 03/23/2019, 1 night stay. Admission hemoglobin/hematocrit 4.3/16.7. After 3 units of PRBCs, hemoglobin/hematocrit was 8.7/26.1. Associated symptoms include restless leg syndrome and fatigue. She also had acute renal failure likely secondary to the severe anemia improved with transfusion. Admission creatinine 1.10, discharged 0.90. Admission BUN 34, discharge 21/12. Reports that both restless leg syndrome and fatigue have vastly improved since her blood transfusion. She was discharged on ferrous sulfate 325 mg p.o. b.i.d. and is tolerating that well orally, stools have subsequently turned black, as expected. Otherwise, denies melena or hematochezia. No abdominal pain. History of colonoscopy approximately 7-8 years ago, [place], [place], reportedly n ormal per patient. No change in bowel habits. There has been no family history of colon cancer colon polyps. Overall health issues have been stable, including no major cardiac events for the past 6 weeks. Patient History Medical History (Updated 06/02/19 @ 16:40 by Enedelia Walden MD) Borderline hypercholesterolemia (Acute) Borderline hypertension (Acute) Bunion of unspecified foot (Acute) Dyspnea on minimal exertion (Acute) Hearing loss (Acute) Iron deficiency anemia (Acute) Osteoarthritis (Acute) Osteoporosis (Acute) Restless leg syndrome (Acute) Seasonal allergies (Acute) Snake bite poisoning (Acute) Vitamin D deficiency (Acute) Surgical History (Updated 05/11/19 @ 13:58 by Malcolm Eiesnberg MD) H/O breast biopsy (Acute) History of appendectomy (Acute) History of foot surgery (Acute) History of tonsillectomy and adenoidectomy (Acute) Family History Father Diabetes mellitus Hypertension Stroke Tuberculosis Mother Hypertension Stroke Osteoporosis Sister Scleroderma Social History household members: spouse Smoking Status: Never smoker alcohol intake: current Family & Social History Social History: household members spouse Tobacco & Substance use: Smoking Status Never smoker alcohol intake current alcohol intake frequency a few times a month Substance Use Type does not use Meds Home Medications and Allergies Home Medications Medication Instructions Recorded Confirmed Type atorvastatin 10 mg PO DAILY 03/31/19 05/19/19 History cholecalciferol (vitamin D3) 2,000 unit PO DAILY 03/31/19 05/19/19 History [Vitamin D3] cyclobenzaprine 1 tab PO PRN PRN 03/31/19 05/19/19 History hydrochlorothiazide 12.5 mg PO PRN PRN 03/31/19 05/19/19 History lisinopril 10 mg PO DAILY 03/31/19 05/19/19 History pramipexole 0.375 mg PO BEDTIME #270 tab 04/01/19 05/19/19 Rx pramipexole 1 tab PO QAM #0 tab 04/01/19 05/19/19 Rx ferrous sulfate 325 mg PO DAILY 05/11/19 05/19/19 History Allergies Allergy/AdvReac Type Severity Reaction Status Date / Time No Known Drug Allergies Allergy Verified 05/19/19 12:38 Review of Systems Review of Systems ROS Unobtainable: All systems reviewed & are unremarkable except as noted in HPI and below Exam Vital Signs (past 8 hours): Oxygen Delivery Method Room Air Narrative Exam Narrative: GENERAL: Alert and oriented, appearing stated age and in no acute distress. HEENT: Head normocephalic/atraumatic. LUNGS: Clear to ausculation bilaterally, no wheezes, rhonchi or rales. CV: Normal S1 and S2 with regular rate and rhythm, no audible murmurs, rubs or gallops. ABDOMEN: Soft, non-tender, non-distended, no organomegaly. Positive bowel sounds. EXTREMITIES: No clubbing, cyanosis, or edema. NEURO: Cranial nerves II through XII grossly intact, no focal deficits. PSYCH: Alert and oriented x 3. SKIN: No concerning lesions. Assessment & Plan Assessment & Plan narrative: 1. Anemia 2. Screening for colon cancer EGD and colonoscopy. The nature and character of the procedures as well as anticipated results were discussed. The possibility of not completing the procedures was also discussed. Possible complications including aspiration pneumonia, bleeding, perforation, and reaction to medications either for sedation or preparation and missed lesions were discussed. Questions were answered in proceeding the ED colonoscopy was liked it. Informed consent signed. CBC will be repeated today Time Spent With Patient Time with patient: 25 - 35 minutes
== END 2019-05-19 14:37 | disposition home or self-care (01) ==
PROVIDERS: PCP Student in an Organized Health Care Education/Training Program; Visit Provider Student in an Organized Health Care Education/Training Program
PROC: 0DJ08ZZ Inspection of Upper Intestinal Tract, Via Natural or Artificial Opening Endoscopic (ICD-10-PCS; CPT 43235; principal; 2019-05-19 13:00)
PROC: 0DJD8ZZ Inspection of Lower Intestinal Tract, Via Natural or Artificial Opening Endoscopic (ICD-10-PCS; CPT 45378; 2019-05-19 13:00)
DX: Z12.11 Encounter for screening for malignant neoplasm of colon (principal); D12.2 Benign neoplasm of ascending colon; K57.30 Diverticulosis of large intestine without perforation or abscess without bleeding; K29.50 Unspecified chronic gastritis without bleeding; K44.9 Diaphragmatic hernia without obstruction or gangrene; D50.9 Iron deficiency anemia, unspecified; G25.81 Restless legs syndrome; E78.5 Hyperlipidemia, unspecified; I10 Essential (primary) hypertension; E55.9 Vitamin D deficiency, unspecified; M81.0 Age-related osteoporosis without current pathological fracture; R53.83 Other fatigue
CPT/HCPCS: 45385; 43239; 88305; 88341; 88342; J2250; J3010; Q9968

== ENCOUNTER → 2019-12-14 10:24 | Outpatient (CLI) | payer MEDICARE, OTHER, SELFPAY ==
[2019-12-14 11:08] LABS: Add Manual Diff / Slide Review NO; Basophils Absolute Auto 0 /uL (0-100); Basophils Percent Auto 0.7 % (0-2); Eosinophils Absolute Auto 100 /uL (0-450); Eosinophils Percent Auto 1.1 % (2-4); Hematocrit 41.6 % (36-46); Hemoglobin 13.6 g/dL (12.0-16.0); Lymphocytes Absolute Auto 1400 /uL (1100-4500); Lymphocytes Percent Auto 30.2 % (25-40); Mean Corpuscular HGB Conc 32.6 % (30-36); Mean Corpuscular Hemoglobin 27.7 PG (26-34); Mean Corpuscular Volume 84.9 fL (80-100); Monocytes Absolute Auto 500 /uL (0-900); Monocytes Percent Auto 11.4 % (3-14); Neutrophils Absolute Auto 2600 /uL (1500-7000); Neutrophils Percent Auto 56.6 % (50-75); Platelet Count 369 X10^3/uL (150-400); Red Cell Distribution Width 16.9 % (11.6-14.8); White Blood Cell Count 4.7 X10^3/uL (4.5-11.0)
[2019-12-14 11:33] LABS: HEMOLYSIS < 15 (0-50); Iron 86 ug/dL (37-170)
[2019-12-14 11:44] LABS: Percent Iron Saturation 27 % (15-50); Total Iron Binding Capacity 323 ug/dL (265-497); Transferrin 273 mg/dL (206-381)
[2019-12-14 12:13] LABS: Ferritin 56 ng/mL (11-264)
[2019-12-14 12:43] LABS: Folate 15.3 ng/mL (2.76-20.0); Vitamin B12 449 pg/mL (239-931)
== END ==
PROVIDERS: PCP Student in an Organized Health Care Education/Training Program; Referring Provider Internal Medicine Hematology & Oncology; Visit Provider Internal Medicine Hematology & Oncology
DX: D50.9 Iron deficiency anemia, unspecified (principal)
CPT/HCPCS: 36415; 82607; 82728; 82746; 83540; 83550; 85025

== ENCOUNTER → 2020-01-16 10:47 | Outpatient (CLI) | payer MEDICARE, OTHER, SELFPAY ==
[2020-01-16 11:06] LABS: Add Manual Diff / Slide Review NO; Basophils Absolute Auto 0 /uL (0-100); Basophils Percent Auto 0.8 % (0-2); Eosinophils Absolute Auto 0 /uL (0-450); Eosinophils Percent Auto 0.9 % (2-4); Hematocrit 41.5 % (36-46); Hemoglobin 13.7 g/dL (12.0-16.0); Lymphocytes Absolute Auto 1300 /uL (1100-4500); Lymphocytes Percent Auto 25.5 % (25-40); Mean Corpuscular HGB Conc 33.1 % (30-36); Mean Corpuscular Hemoglobin 27.2 PG (26-34); Mean Corpuscular Volume 82.2 fL (80-100); Monocytes Absolute Auto 500 /uL (0-900); Neutrophils Absolute Auto 3300 /uL (1500-7000); Neutrophils Percent Auto 62.8 % (50-75); Platelet Count 350 X10^3/uL (150-400); Red Blood Cell Count 5.05 X10^6/uL (4.0-5.2); Red Cell Distribution Width 16.2 % (11.6-14.8); White Blood Cell Count 5.2 X10^3/uL (4.5-11.0)
[2020-01-16 11:26] LABS: HEMOLYSIS < 15 (0-50); Iron 73 ug/dL (37-170)
[2020-01-16 11:36] LABS: Percent Iron Saturation 22 % (15-50); Total Iron Binding Capacity 325 ug/dL (265-497); Transferrin 278 mg/dL (206-381)
[2020-01-16 11:54] LABS: Ferritin 21 ng/mL (11-264)
== END ==
PROVIDERS: PCP Student in an Organized Health Care Education/Training Program; Referring Provider Internal Medicine Hematology & Oncology; Visit Provider Internal Medicine Hematology & Oncology
DX: D50.9 Iron deficiency anemia, unspecified (principal)
CPT/HCPCS: 36415; 82728; 83540; 83550; 85025

== ENCOUNTER → 2020-02-27 11:17 | Outpatient (CLI) | payer MEDICARE, OTHER, SELFPAY ==
[2020-02-27 12:08] LABS: Add Manual Diff / Slide Review NO; Basophils Absolute Auto 100 /uL (0-100); Basophils Percent Auto 0.9 % (0-2); Eosinophils Absolute Auto 100 /uL (0-450); Eosinophils Percent Auto 1.4 % (2-4); Hematocrit 38.3 % (36-46); Hemoglobin 12.6 g/dL (12.0-16.0); Lymphocytes Absolute Auto 1800 /uL (1100-4500); Lymphocytes Percent Auto 25.7 % (25-40); Mean Corpuscular HGB Conc 32.8 % (30-36); Mean Corpuscular Hemoglobin 26.4 PG (26-34); Mean Corpuscular Volume 80.5 fL (80-100); Monocytes Absolute Auto 600 /uL (0-900); Monocytes Percent Auto 9.1 % (3-14); Neutrophils Absolute Auto 4500 /uL (1500-7000); Neutrophils Percent Auto 62.9 % (50-75); Platelet Count 437 X10^3/uL (150-400); Red Blood Cell Count 4.76 X10^6/uL (4.0-5.2); Red Cell Distribution Width 15.7 % (11.6-14.8); White Blood Cell Count 7.2 X10^3/uL (4.5-11.0)
[2020-02-27 12:27] LABS: HEMOLYSIS < 15 (0-50); Iron 28 ug/dL (37-170)
[2020-02-27 12:38] LABS: Percent Iron Saturation 7 % (15-50); Total Iron Binding Capacity 378 ug/dL (265-497); Transferrin 304 mg/dL (206-381)
[2020-02-27 13:04] LABS: Ferritin 7 ng/mL (11-264)
[2020-02-27 13:35] LABS: Folate 7.8 ng/mL (2.76-20.0); Vitamin B12 325 pg/mL (239-931)
== END ==
PROVIDERS: PCP Student in an Organized Health Care Education/Training Program; Referring Provider Internal Medicine Hematology & Oncology; Visit Provider Internal Medicine Hematology & Oncology
DX: D50.9 Iron deficiency anemia, unspecified (principal)
CPT/HCPCS: 36415; 82607; 82728; 82746; 83540; 83550; 85025

== ENCOUNTER → 2021-03-24 14:06 | Outpatient (CLI) | payer MEDICARE, OTHER, SELFPAY | PROVIDERS: PCP Student in an Organized Health Care Education/Training Program; Referring Provider Student in an Organized Health Care Education/Training Program; Visit Provider Student in an Organized Health Care Education/Training Program | DX: M85.88 Other specified disorders of bone density and structure, other site (principal); Z78.0 Asymptomatic menopausal state; Z87.891 Personal history of nicotine dependence; Z82.62 Family history of osteoporosis | CPT/HCPCS: 77080 ==

== ENCOUNTER → 2023-04-30 09:59 | Outpatient (CLI) | payer MEDICARE, OTHER, SELFPAY ==
--- NOTE | 2023-04-30 10:16 | DI.DEXA.S_ITS ---
Bone Density Report Name: MARLON BOWMAN Age: 78 Sex: Female Ethnicity: White Date of : 1945 Indication: osteopenia; monitoring treatment; Referring Provider: DARLEEN ROMERO Study: Bone densitometry was performed. Exam Date: April 30, 2023 Accession number: [id number] Bone Density: Region BMD T-score Z-score Classification AP Spine(L1-L4) 0.809 -2.2 0.4 Osteopenia Femoral Neck (Left) 0.561 -2.6 -0.4 Osteoporosis Total Hip (Left) 0.777 -1.4 0.5 Osteopenia Femoral Neck (Right) 0.656 -1.7 0.4 Osteopenia Total Hip (Right) 0.786 -1.3 0.6 Osteopenia Total Hip Mean 0.781 -1.4 0.6 Osteopenia World Health Organization criteria for BMD impression classify patients as: Normal (T-score at or above -1.0), Osteopenia (T-score between -1.0 and -2.5), or Osteoporosis (T-score at or below -2.5). 10-year Fracture Risk: FRAX not reported because: Some T-score for Spine Total or Hip Total or Femoral Neck at or below -2.5 Treated for osteoporosis Previous Exams: -- Region Exam Age BMD T-score BMD Change BMD Change Date g/cm2 vs Baseline vs Previous -- AP Spine (L1-L4) 04/30/2023 78 0.809 -2.2 -0.024 (-2.9%)# -0.024 (-2.9%)# 03/24/2021 76 0.833 -1.9 Total Hip(Left) 04/30/2023 78 0.777 -1.4 0.020 (2.7%)# 0.020 (2.7%)# 03/24/2021 76 0.756 -1.5 Total Hip(Right) 04/30/2023 78 0.786 -1.3 0.070 (9.8%)# 0.070 (9.8%)# 03/24/2021 76 0.716 -1.9 -- *Denotes significance at 95% confidence level, LSC for AP Spine = 0.022 g/cm2, LSC for Total Hip = 0.027 g/cm2 # Denotes dissimilar scan types or analysis methods Impression: The patient has osteoporosis, based on the Left Femoral Neck T-score. No significant bone loss was observed. Discussion: PATIENT UNDER TREATMENT WITH NO SIGNIFICANT BMD LOSS SINCE LAST EXAM. In an untreated patient, BMD typically declines with age. A lack of decline or gain is usually a sign that treatment is efficacious and fracture risk is reduced. It is important to ask patients whether they are taking their medications and to encourage continued and appropriate compliance with their osteoporosis therapies to reduce fracture risk. It is also important to review their risk factors and encourage appropriate calcium and vitamin D intakes, exercise, fall prevention and other lifestyle measures. Follow-Up: Consider a repeat BMD and Vertebral Fracture Assessment (VFA) exam in 2 years or sooner if medically necessary, to reassess this patient's status. Reported by: PENNIE JOHN M.D. on 04/30/2023 10:28:00 AM.
== END ==
PROVIDERS: PCP Family Medicine; Referring Provider Family Medicine; Visit Provider Family Medicine
DX: M81.0 Age-related osteoporosis without current pathological fracture (principal); D64.9 Anemia, unspecified; Z78.0 Asymptomatic menopausal state; Z79.83 Long term (current) use of bisphosphonates; Z92.23 Personal history of estrogen therapy
CPT/HCPCS: 77080

== ENCOUNTER → 2023-05-19 09:41 | Outpatient (CLI) | payer MEDICARE, OTHER, SELFPAY ==
[2023-05-19 10:10] LABS: Add Manual Diff / Slide Review NO; Basophils Absolute Auto 0 /uL (0-100); Basophils Percent Auto 0.7 % (0-2); Eosinophils Absolute Auto 100 /uL (0-450); Eosinophils Percent Auto 1.6 % (2-4); Hematocrit 23.8 % (36-46); Hemoglobin 7.3 g/dL (12.0-16.0); Lymphocytes Absolute Auto 900 /uL (1100-4500); Lymphocytes Percent Auto 13.9 % (25-40); Mean Corpuscular HGB Conc 30.8 % (30-36); Mean Corpuscular Hemoglobin 25.5 PG (26-34); Mean Corpuscular Volume 82.7 fL (80-100); Monocytes Absolute Auto 600 /uL (0-900); Monocytes Percent Auto 9.4 % (3-14); Neutrophils Absolute Auto 4700 /uL (1500-7000); Neutrophils Percent Auto 74.4 % (50-75); Platelet Count 537 X10^3/uL (150-400); Red Blood Cell Count 2.87 X10^6/uL (4.0-5.2); Red Cell Distribution Width 21.8 % (11.6-14.8); White Blood Cell Count 6.4 X10^3/uL (4.5-11.0)
[2023-05-19 10:14] LABS: HEMOLYSIS < 15 (0-50); Iron 12 ug/dL (37-170)
[2023-05-19 10:16] LABS: Chloride 109 mmol/L (98-107); HEMOLYSIS < 15 (0-50)
[2023-05-19 10:18] LABS: Alanine Aminotransferase 25 IU/L (<35); Albumin 3.7 g/dL (3.5-5.0); Albumin Globulin Ratio 1.3 (1.0-2.8); Alkaline Phosphatase 78 U/L (38-126); Aspartate Aminotransferase 24 IU/L (14-36); Bilirubin Total 0.3 mg/dL (0.2-1.3); Blood Urea Nitrogen 17 mg/dL (7-17); Calcium 8.3 mg/dL (8.4-10.2); Carbon Dioxide 24 mmol/L (22-32); Estimated Glomerular Filt Rate > 60 mL/min (>60); Globulin 2.8 g/dL (1.7-4.1); Glucose 121 mg/dL (80-110); Potassium 4.3 mmol/L (3.4-5.1); Sodium 138 mmol/L (137-145); Total Protein 6.5 g/dL (6.3-8.2)
[2023-05-19 10:24] LABS: Percent Iron Saturation 3 % (15-50); Total Iron Binding Capacity 390 ug/dL (265-497); Transferrin 309 mg/dL (206-381)
[2023-05-19 10:53] LABS: Ferritin 30 ng/mL (11-264)
[2023-05-19 10:54] LABS: Anisocytosis 2+; Hypochromasia 1+
== END ==
PROVIDERS: PCP Family Medicine; Referring Provider Internal Medicine Hematology & Oncology; Visit Provider Internal Medicine Hematology & Oncology
DX: D50.9 Iron deficiency anemia, unspecified (principal)
CPT/HCPCS: 36415; 80053; 82728; 83540; 83550; 85025

== ENCOUNTER → 2024-12-29 14:07 | Outpatient (CLI) | payer MEDICARE, OTHER, SELFPAY ==
--- NOTE | 2024-12-29 14:09 | DI.RAD.S_ITS ---
PROCEDURE: XR LUMBAR SPINE MIN 4V INDICATIONS: LUMBAR SPINE PAIN TECHNIQUE: 5 views of the lumbar spine were acquired, including bilateral oblique views. COMPARISON: None. FINDINGS: Bones: 5 nonrib-bearing vertebrae are present. 0.7 cm anterolisthesis of L4 on L5 and 0.9 cm anterolisthesis of L5 on S1 with associated disc height loss, adjacent endplate sclerosis and anterior osteophytosis. There is otherwise normal bony alignment. Moderate to severe L2-L3 and T11-T12 disc height loss with adjacent endplate sclerosis and anterior osteophytosis. No vertebral body compression fractures. No suspicious bony lesions. Soft tissues: Overlying bowel gas pattern is normal. No suspicious soft tissue calcifications. Oblique images: No pars defects. IMPRESSION: Multilevel spondylosis and spondylolisthesis of the lumbar spine. No evidence of acute osseous abnormality. Dictated by: Dennsi Judd M.D. on 12/30/2024 at 5:43 Approved by: Dennis Judd M.D. on 12/30/2024 at 5:44
== END ==
PROVIDERS: PCP Family Medicine; Referring Provider Family Medicine; Visit Provider Family Medicine
DX: M43.16 Spondylolisthesis, lumbar region (principal); M43.17 Spondylolisthesis, lumbosacral region; M47.816 Spondylosis without myelopathy or radiculopathy, lumbar region; M54.50 Low back pain, unspecified
CPT/HCPCS: 72110